=== PATIENT | male | born 1950 | race Caucasian/White ===

== ENCOUNTER → 2017-01-22 | Day surgery (SDC) | payer MEDICARE ==
[~2017-01-22] MED LIST: LISINOPRIL5 MG PO; PRAVACHOL PO
--- NOTE | ~2017-01-22 | OR ---
Unit #: [id number] #: [id number] Patient: FREDIS GARZA [id number] [address] [place], [place] [address] [id number] O MR#: [id number] NAME: FREDIS GARZA ROOM: Date of Procedure: 01/22/2017 Admission Date: 01/22/2017 Surgeon: Feliz Ewing M.D. : 1950 Attending Physician: Feliz Ewing M.D. Primary Care Physician: Nicho Weston Jr., M.D. OPERATIVE REPORT PRIMARY CARE PHYSICIAN Nicho Weston M.D. PREOPERATIVE DIAGNOSES Colorectal cancer screening in a high-risk patient. The patient has family history of colon cancer in his father and personal history of colonic adenomas. PROCEDURE PERFORMED Colonoscopy up to cecum and terminal ileum with excellent preparation and good visualization. POSTOPERATIVE DIAGNOSES Mild sigmoid and descending colon diverticulosis. Otherwise, normal examination up to cecum and terminal ileum. The quality of the prep was excellent. No polyps were present. RECOMMENDATIONS Repeat colonoscopy in 5 years. SEDATION USED MAC. DESCRIPTION OF PROCEDURE Following detailed explanation of the potential risks and complications of a colonoscopy, namely perforation, bleeding, and complication related to sedation, the patient was brought to GI lab and laid in the left lateral decubitus position. A digital rectal examination was performed, which was normal. Lubricated tip of the Olympus video colonoscope was inserted through the anus and advanced under direct vision. The scope was advanced past rectosigmoid into descending colon. No diverticula were noticed in this area. The scope tip was then navigated all the way up to cecum with visualization of the ileocecal valve and the appendiceal orifice. Preparation was excellent with good visualization and photodocumentation was obtained. Last few inches of the terminal ileum were also visualized after intubation of the ileocecal valve and appeared normal. Successive segments of the colonic mucosa were examined upon withdrawal and appeared unremarkable. There being no polyps, mass lesions, or AVMs. Other than the scant diverticula, no other abnormalities were noted. The patient did not have any internal hemorrhoids at anal verge. The scope was then withdrawn and the patient returned to recovery area. He tolerated the procedure without any postprocedure complications. Unit #: [id number] #: [id number] Patient: FREDIS GARZA Dictated by... Narciso Francis TD: 01/22/2017 22:00 JOB #: [id number] OPERATIVE REPORT X Feliz Ewing MD X PROCEDURE OPERATIVE NOTE
--- NOTE | ~2017-01-22 | OR ---
Unit #: [id number] #: [id number] Patient: FREDIS GARZA [id number] [address] [place], [place] [address] [id number] O MR#: [id number] NAME: FREDIS GARZA. ROOM: Date of Procedure: 01/22/2017 Admission Date: 01/22/2017 Surgeon: Feliz Ewing M.D. : 1950 Attending Physician: Feliz Ewing M.D. Primary Care Physician: Nicho Weston Jr., M.D. OPERATIVE REPORT PRIMARY CARE PHYSICIAN Nicho Weston M.D. PREOPERATIVE DIAGNOSES The patient has personal history of colon polyps and family history of colon cancer in his father. PROCEDURE PERFORMED Colonoscopy up to cecum and terminal ileum. POSTOPERATIVE DIAGNOSES Mild sigmoid and descending colon diverticulosis. Otherwise, normal examination up to cecum and terminal ileum. The quality of the prep was excellent. No polyps were seen. RECOMMENDATIONS Repeat colonoscopy in 5 years. SEDATION USED MAC. DESCRIPTION OF PROCEDURE Following detailed explanation of potential risks and complications of a colonoscopy, namely perforation, bleeding, and complications related to sedation, the patient was brought to GI lab and laid in the left lateral decubitus position. A digital rectal examination was performed, which was normal. Lubricated tip of the Olympus video colonoscope was inserted through the anus and advanced under direct vision. The scope was advanced and passed up to sigmoid into descending colon. Scant small diverticula were noticed in this area. The scope tip was then navigated all the way up to cecum with visualization of the ileocecal valve and the appendiceal orifice. Preparation was excellent with good visualization and photodocumentation was obtained. Last several inches of the terminal ileum also visualized after intubation of the ileocecal valve and appeared normal. Successive segments of the colonic mucosa were examined upon withdrawal and appeared unremarkable except for scant diverticula seen in the left side. The patient did not have any polyps, mass lesions, or AVMs. No internal hemorrhoids noted at the anal verge. The scope was then withdrawn. The patient returned to the recovery area. He tolerated the procedure without any postprocedure complications. Unit #: [id number] #: [id number] Patient: FREDIS GARZA Dictated by... Narciso Francis/sari TD: 01/23/2017 01:11 JOB #: [id number] OPERATIVE REPORT X Feliz Ewing MD PROCEDURE OPERATIVE NOTE
== END | disposition home or self-care (01) ==
LOC: COPS 08:45
PROVIDERS: Internal Medicine Gastroenterology
PROC: 0DJD8ZZ Inspection of Lower Intestinal Tract, Via Natural or Artificial Opening Endoscopic (ICD-10-PCS; principal; 2017-01-22 10:00)
DX: Z12.11 Encounter for screening for malignant neoplasm of colon (principal); K57.30 Diverticulosis of large intestine without perforation or abscess without bleeding; I10 Essential (primary) hypertension; E11.9 Type 2 diabetes mellitus without complications; Z79.899 Other long term (current) drug therapy; K21.9 Gastro-esophageal reflux disease without esophagitis; Z86.010 Personal history of colon polyps; Z80.0 Family history of malignant neoplasm of digestive organs; Z90.49 Acquired absence of other specified parts of digestive tract; Z98.890 Other specified postprocedural states
CPT/HCPCS: 82947; J2250